=== PATIENT | female | born 1945 ===

== ENCOUNTER → 2019-04-27 | Outpatient (CLI) | payer MEDICARE ==
[2019-04-27 14:00] LABS: HCT 31.3 % (34.0-46.0); HGB 10.3 gm/dL (11.4-16.0); MCH 29.3 pg (25.0-35.0); MCHC 32.9 g/dL (31.0-37.0); MCV 89.2 fL (80.0-100.0); Mean Platelet Volume 6.1; Platelet Count 205 k/uL (150-450); RBC 3.51 m/uL (3.80-5.40); RDW 13.7 % (11.5-15.5); WBC 6.2 k/uL (3.8-10.6)
[2019-04-27 14:10] LABS: Potassium 4.9 mmol/L (3.5-5.1)
== END | disposition home or self-care (01) ==
LOC: LABPAT 12:25
PROVIDERS: ATTEND Internal Medicine Interventional Cardiology
DX: Z01.812 Encounter for preprocedural laboratory examination (principal)
CPT/HCPCS: 36415; 80051; 82565; 84520; 85027

== ENCOUNTER 2019-05-02 05:59 | Day surgery (SDC) | payer MEDICARE ==
[2019-05-02] MEDS ORDERED: ALPRAZolam 0.25 MG TAB PO PRN (06:03)
[2019-05-02] MEDS ORDERED: SODIUM CHLORIDE 0.9% 1,000 ML in EMPTY BAG 1 BAG IV ONE (06:03)
[2019-05-02] MEDS ORDERED: NITROGLYCERIN SL TABS 0.4 MG TAB SUBLINGUAL PRN ×2 (06:03→08:56)
[2019-05-02] MEDS ORDERED: ALPRAZolam 0.5 MG TAB PO PRN (06:03)
[2019-05-02 06:43] LABS: Glucose,Whole Blood 132 mg/dL (75-99)
[2019-05-02 06:48] LABS: Calcium 9.7 mg/dL (8.4-10.2); Potassium 4.5 mmol/L (3.5-5.1)
[2019-05-02] MEDS ORDERED: ATORVASTATIN 80 MG TAB PO ONE (07:00)
[2019-05-02] MEDS ORDERED: ASPIRIN 325 MG TAB PO ONE (07:00)
[2019-05-02] MEDS ORDERED: fentaNYL (PF) 50 MCG/ML 2 ML AMP ONE (07:21)
[2019-05-02] MEDS ORDERED: LIDOCAINE 1% INJ 10MG/ML (20 ML MDV) ONE (07:21)
[2019-05-02] MEDS ORDERED: VERAPAMIL 2.5 MG/ML 2 ML AMP ONE (07:21)
[2019-05-02] MEDS ORDERED: HEPARIN SODIUM 1,000 UN/ML (10ML VL) ONE (07:21)
[2019-05-02] MEDS ORDERED: fentaNYL (PF) 50 MCG/ML 2 ML AMP IV ONE (07:57)
[2019-05-02] MEDS ORDERED: LIDOCAINE 1% INJ 10MG/ML (20 ML MDV) SQ ONE ×2 (08:01→08:02)
[2019-05-02] MEDS ORDERED: VERAPAMIL SYRINGE (5 MG/10 ML) INTRAARTER ONE ×2 (08:02→08:03)
[2019-05-02] MEDS ORDERED: VERAPAMIL 2.5 MG/ML 2 ML AMP INTRAARTER ONE (08:02)
[2019-05-02] MEDS ORDERED: CLOPIDOGREL 75 MG TAB ONE (08:21)
[2019-05-02] MEDS ORDERED: BIVALIRUDIN BOLUS 250 MG/50 ML IV ONE (08:25)
[2019-05-02] MEDS ORDERED: BIVALIRUDIN 250 MG in SODIUM CHLORIDE 0.9% 50 ML IV ONE (08:25)
[2019-05-02] MEDS ORDERED: NITROGLYCERIN 1000MCG/10ML SYRINGE INTRACORON ONE (08:26)
[2019-05-02] MEDS ORDERED: CLOPIDOGREL 75 MG TAB PO ONE (08:26)
[2019-05-02] MEDS ORDERED: IOPAMIDOL-370 125ML BTL INJ ONE (08:30)
[2019-05-02] MEDS ORDERED: MIDAZOLAM 2 MG/2 ML VIAL IVP ONE (08:31)
[2019-05-02] MEDS ORDERED: IOPAMIDOL-370 100ML BTL INJ ONE (08:46)
[2019-05-02] MEDS ORDERED: MAG HYDROX/AL HYDROX/SIMETH 30 ML CUP PO PRN (08:56)
[2019-05-02] MEDS ORDERED: ATROPINE SULFATE 0.1 MG/ML 10ML SYRINGE IV PRN (08:56)
[2019-05-02] MEDS ORDERED: RX INFO: IV CONTRAST WAS GIVEN 1 EACH MISC MISCELLANE PRN (08:56)
[2019-05-02] MEDS ORDERED: SODIUM CHLORIDE 0.9% 1,000 ML IV SCH (09:00)
--- NOTE | 2019-05-02 09:09 | PTCA ---
PERCUTANEOUSTRANS CORORONARY ANGIOGRAPHY Mrs. Liu is a 73-year-old female with known history of coronary artery disease, hypertension, hyperlipidemia, diabetes mellitus, who presented with new onset angina pectoris, underwent cardiac catheterization, was found to have critical stenosis involving the mid left circumflex. In view of that, recommendation regarding angioplasty and stenting. The procedures, risks, and complication were discussed with the patient who is in full understanding and agreement. PROCEDURE: A 6-Kinyarwanda FL 3.5 guiding catheter introduced into the system after cannulating the left main, a 0.014 balanced medium weight J-wire was advanced across the lesion, positioned distal left circumflex. Following that, a 2.5 x 12 mm Trek balloon was advanced and one inflation at 8 atmospheres was done. Following that, the balloon was removed and attempt to advance a 3.25 x 15 mm Xience Olivia stent were unsuccessful. That stent was removed and another 0.014 balanced medium weight J-wire was advanced next to the first one in a lupe fashion. Following that, the stent was advanced, deployed and post-dilated at 16 atmospheres. After the last inflation, after appropriate wait, the balloon and the guidewire were withdrawn back in the guiding catheter. Images were obtained and repeated. Those images reveal stable successful stenting. At that point, the guiding catheter, the balloon and the guidewire were removed and a left ventricular end-diastolic pressure was calculated. Following that, sheath was removed. Hemostasis was obtained with deployment of a TR band. There was no immediate complication. Patient is returned to her room in stable condition. Of note, patient received Angiomax per protocol as well as oral loading dose of clopidogrel. She had EKG changes and chest discomfort with the inflation that resolved at the end the procedure. RESULTS: Successful stenting of the mid left circumflex with reduction of stenosis from 90% to 0%. RECOMMENDATION: Patient will be continued on aspirin, Plavix and statin. The importance of dual antiplatelet treatment was discussed with the patient and her family who are in full understanding and agreement. Depending on her progress, further recommendation will be made regarding the need to undergo revascularization of her right coronary artery. Procedure is 40 minutes. MMODL / IJN: [id number] /
--- NOTE | 2019-05-02 09:21 | CC ---
CARDIAC CATHETERIZATION REPORT Mrs. Garner is a 73-year-old female with known history of hypertension, hyperlipidemia, diabetes mellitus, who has a known history of coronary artery disease and presented with symptoms of progressive chest discomfort with minimal physical activity. In view of that, recommendation was made regarding cardiac catheterization. The procedure as well as the risks and complications were discussed with the patient who is in full understanding and agreement. PROCEDURE: Patient was brought to mill lab[facility] in a fasting semi-sedated state after receiving fentanyl and Benadryl and achieving moderate conscious sedated state. Using Xylocaine anesthesia in the Seldinger technique, a 6-Syrian sheath was introduced in the right radial artery. Selective right and left coronary angiography was performed using 5- Syrian 3.5 bend right and left Eflicia catheter. Multiple views of the coronary artery including hemiaxial views were obtained. Following that, angioplasty and stenting was performed. Following that, 5-Syrian tight pigtail catheter was introduced in the left ventricle and a 30-degree SHER view of the left ventricle was obtained. Following the catheter and sheath were removed. Hemostasis was obtained with deployment of a TR band. There was no immediate complication. Patient was returned to room in stable condition. Of note, the patient received intra-arterial verapamil. FINDINGS: FLUOROSCOPY: There was significant calcification involving all the coronary arteries and predominantly the LAD proximally. LEFT MAIN: This is a large-sized vessel bifurcating in left circumflex and left anterior descending artery. Left main coronary artery has no evidence of high-grade stenosis. LEFT ANTERIOR DESCENDING ARTERY: This is a large-sized vessel reaching toward the apex with a wraparound apex segment giving rise to 3 diagonal branches. The left anterior descending artery proximally is heavily calcified, has a tubular lesion of 50% to 60%. In the mid segment there is another 50% plaque. The rest of the vessel has no high- grade stenosis. LEFT CIRCUMFLEX: This is a nondominant large vessel giving rise to 3 obtuse marginal branches. The first one is small in caliber. After the takeoff of the first obtuse marginal branch, there is a 90% eccentric lesion. The rest of the vessel has mild to moderate disease of 30%. RIGHT CORONARY ARTERY: This is a small dominant vessel bifurcating distally PDA and posterolateral segment and branches. The right coronary artery is calcified and tortuous. After the takeoff of the acute marginal branch, there is an 80% plaque. The rest of the vessel has no high-grade stenosis. LEFT VENTRICULOGRAM: Left ventriculogram is not performed. No gradient across the aortic valve. The left ventricular end-diastolic pressure was 12 to 14 mmHg. CONCLUSION: 1. Calcified coronary arteries. 2. Significant disease in the mid left circumflex and right coronary artery. 3. Moderate disease in the left anterior descending artery. RECOMMENDATION: In view of finding anatomy, I recommend proceeding with angioplasty and stenting of the left circumflex. The procedure as well as the risks and the complications were discussed with the patient who is in full understanding and agreement. MMODL / IJN: [id number] /
[2019-05-02] MEDS: ATENOLOL 50 MG TAB PO SCH (09:32)
[2019-05-02] MEDS ORDERED: ACETAMINOPHEN TAB 325 MG TAB PO PRN (09:43)
[2019-05-02] MEDS: CYANOCOBALAMIN 500 MCG TAB PO SCH (09:50)
[2019-05-02] MEDS: ISOSORBIDE MONONITRATE ER 30 MG TAB.ER.24H PO SCH (09:51)
[2019-05-02 11:28] LABS: Glucose,Whole Blood 169 mg/dL (75-99)
[2019-05-02 11:55] VITALS: BMI 35.8
[2019-05-02 16:30] LABS: Glucose,Whole Blood 108 mg/dL (75-99)
[2019-05-02 20:33] LABS: Glucose,Whole Blood 181 mg/dL (75-99)
[2019-05-02] MEDS ORDERED: ZOLPIDEM 5 MG TAB PO PRN (21:00)
[2019-05-02] MEDS ORDERED: LISINOPRIL 20 MG TAB PO SCH (21:00)
[2019-05-03 03:49] VITALS: PULSE 75
[2019-05-03 06:39] LABS: Glucose,Whole Blood 121 mg/dL (75-99)
[2019-05-03 06:47] LABS: Calcium 9.2 mg/dL (8.4-10.2); Potassium 4.5 mmol/L (3.5-5.1)
[2019-05-03] MEDS ORDERED: PANTOPRAZOLE 40 MG TABLET PO SCH (07:30)
[2019-05-03] MEDS: ATENOLOL 50 MG TAB PO SCH (08:51)
[2019-05-03] MEDS: CYANOCOBALAMIN 500 MCG TAB PO SCH (08:51)
[2019-05-03] MEDS: ISOSORBIDE MONONITRATE ER 30 MG TAB.ER.24H PO SCH (08:51)
[2019-05-03] MEDS ORDERED: CLOPIDOGREL 75 MG TAB PO SCH (09:00)
[2019-05-03] MEDS ORDERED: ATORVASTATIN 40 MG TAB PO SCH (09:00)
[2019-05-03] MEDS ORDERED: ASPIRIN 81 MG PO SCH (09:00)
--- NOTE | 2019-05-03 09:44 | PN ---
PROGRESS NOTE Mr. Garner is a 73-year-old female with known history of coronary artery disease who presented with symptoms of progressive chest discomfort, anginal in pattern. She underwent cardiac catheterization was found to have significant stenosis in the left circumflex. She underwent successful stenting of that vessel. She is feeling better, ambulating without significant chest pain. She denies any dizziness or palpitation. She continued to be on aspirin once a day, atenolol 50 mg daily, Lipitor 40 mg daily, Plavix 75 mg daily, isosorbide mononitrate 30 mg daily, Zestril 20 mg daily, and Protonix 40 mg daily. PHYSICAL EXAMINATION: Blood pressure 112/60 with the heart rate in the 70s. LUNGS: Clear. HEART: Regular rate and rhythm. S1, S2. No S3. No rub or gallop. ABDOMEN: Soft, nontender. EXTREMITIES: No edema. Right radial pulse is intact. EKG revealed no acute changes with right bundle branch block. LAB DATA: Lab data revealed a BUN and creatinine 16 and 1.02, potassium 4.5. IMPRESSION: 1. Status post stenting of the left circumflex. 2. Obstructive disease in the right coronary artery. 3. Hypertension. 4. Hyperlipidemia. 5. Diabetes mellitus. RECOMMENDATION: Patient will be discharged home today and followed as an outpatient. MMODL / IJN: [id number] /
[2019-05-03 10:25] VITALS: BP 113/67; RESP 14; TEMP 97.5
== END 2019-05-03 11:02 | disposition home or self-care (01) ==
LOC: CATHCVL 05:59 → 3SCARD 08:40 → CATHCVL 05-03 11:02
PROVIDERS: ATTEND Internal Medicine Interventional Cardiology
DX: I25.110 Atherosclerotic heart disease of native coronary artery with unstable angina pectoris (principal); I10 Essential (primary) hypertension; E11.9 Type 2 diabetes mellitus without complications; E78.2 Mixed hyperlipidemia; E66.9 Obesity, unspecified; Z79.82 Long term (current) use of aspirin; Z79.02 Long term (current) use of antithrombotics/antiplatelets; Z79.899 Other long term (current) drug therapy; Z79.84 Long term (current) use of oral hypoglycemic drugs; Z68.30 Body mass index [BMI] 30.0-30.9, adult; Z88.0 Allergy status to penicillin; Z88.2 Allergy status to sulfonamides; Z88.1 Allergy status to other antibiotic agents
CPT/HCPCS: 93458; 80048 ×2; C9600; C1769 ×2; C1725; C1874; J2250; J2001; J3010; J0583; Q9967 ×2

== ENCOUNTER → 2019-08-22 | Outpatient (CLI) | payer MEDICARE ==
--- NOTE | 2019-08-23 12:31 | MM ---
Reason for exam: screening (asymptomatic). Last mammogram was performed 1 year and 5 months ago. History: Patient is postmenopausal. Took estrogen for 4 years. Physical Findings: A clinical breast exam by your physician is recommended on an annual basis and results should be correlated with mammographic findings. MG 3D Screening Mammo W/Cad Bilateral CC and MLO view(s) were taken. Prior study comparison: March 27, 2018, mammogram, performed at [facility]. August 11, 2015, mammogram, performed at [facility]. There are scattered fibroglandular densities. Benign appearing bilateral vascular calcifications. No suspicious abnormality. No significant changes when compared with prior studies. ASSESSMENT: Benign, BI-RAD 2 RECOMMENDATION: Routine screening mammogram of both breasts in 1 year.
== END | disposition home or self-care (01) ==
LOC: RADMAMWWP 08:01
PROVIDERS: ATTEND Family Medicine
DX: Z12.31 Encounter for screening mammogram for malignant neoplasm of breast (principal)
CPT/HCPCS: 77063; 77067